=== PATIENT | female | born 1995 | race Caucasian/White ===

== ENCOUNTER 2017-07-30 04:38 | Inpatient (IN) | payer OTHER ==
[~2017-07-30] VITALS: Ht 160 cm; Wt 92.5 kg
[2017-07-30 06:08] LABS: HEMOGLOBIN 12.9 gm/dl (12.3-15.3); RED BLOOD COUNT 4.07 M/UL (4.00-5.10); WHITE BLOOD COUNT 10.7 K/UL (4.5-11.0)
[2017-07-31 02:46] LABS: HEMOGLOBIN 11.7 gm/dl (12.3-15.3)
[2017-08-01] MEDS ORDERED: COLACE 100MG C100 MG PO (10:04)
[2017-08-01] MEDS ORDERED: IBUPROFEN600 MG PO (10:05)
== END 2017-08-01 07:10 | disposition home or self-care (01) | DRG 775 ==
LOC: GENOP 04:38 → OB 05:38
PROVIDERS: Obstetrics & Gynecology; ADMIT Obstetrics & Gynecology
PROC: 10E0XZZ Delivery of Products of Conception, External Approach (ICD-10-PCS; principal; 2017-07-30)
PROC: 0UQMXZZ Repair Vulva, External Approach (ICD-10-PCS; 2017-07-30)
DX: O69.81X0 Labor and delivery complicated by cord around neck, without compression, not applicable or unspecified (principal); Z3A.39 39 weeks gestation of pregnancy; Z37.0 Single live birth; O34.83 Maternal care for other abnormalities of pelvic organs, third trimester; N83.202 Unspecified ovarian cyst, left side; O99.820 Streptococcus B carrier state complicating pregnancy; O71.82 Other specified trauma to perineum and vulva
CPT/HCPCS: 36415; 51702; 81001; 82800; 85014; 85018; 85025; 90715; J2590; J2795; J3010; J7120